=== PATIENT | female | born 1950 | race Two or more races ===

== ENCOUNTER 2024-02-25 07:08 | Day surgery (SDC) | payer OTHER ==
[2024-02-18 14:04] VITALS: BP 130/69
[~2024-02-25] VITALS: Ht 160 cm; Wt 77.6 kg
[~2024-02-25 07:08] MED LIST: ASA81 MG PO; COZAAR100 MG PO; HYDRODIURIL12.5 MG PO; KAPSPARGO SPRI100 MG PO; LIPOFEN50 MG; METFORMIN HCL750 MG PO; NORVASC2.5 M1 PO; PEPCID AC20 MG; ZETIA10 MG PO
[2024-02-25] MEDS ORDERED: TYLENOL325 MG PO (12:07)
[2024-02-25] MEDS ORDERED: POVIDONE-IODINE 118 ML BOTT TOP ONE (12:45)
[2024-02-25] MEDS ORDERED: MORPHINE SULFATE 4 MG/ML VIAL IV ONE (13:10)
== END 2024-02-25 17:45 | disposition home or self-care (01) ==
LOC: CIR.AMB 07:08
PROVIDERS: ATTEND Obstetrics & Gynecology Gynecology
DX: N84.1 Polyp of cervix uteri (principal); N95.0 Postmenopausal bleeding; E11.9 Type 2 diabetes mellitus without complications; K21.9 Gastro-esophageal reflux disease without esophagitis; I10 Essential (primary) hypertension; E78.5 Hyperlipidemia, unspecified; K76.0 Fatty (change of) liver, not elsewhere classified

== ENCOUNTER 2024-04-30 05:44 | Day surgery (SDC) | payer OTHER ==
[2024-04-21 13:13] VITALS: BP 143/80
[~2024-04-30] VITALS: Ht 160 cm; Wt 76.2 kg
[~2024-04-30 05:44] MED LIST changes: +TYLENOL325 MG PO
[2024-04-30] MEDS ORDERED: METRONIDAZOLE/SODIUM CHLORIDE 500 MG/100 ML PIGGYBACK IV ONE (10:32)
[2024-04-30] MEDS ORDERED: CEFTRIAXONE SODIUM 2,000 MG VIAL ONE (10:32)
[2024-04-30] MEDS ORDERED: DIBUCAINE 30 GM TUBE ONE (10:33)
[2024-04-30] MEDS ORDERED: POVIDONE-IODINE 118 ML BOTT TOP ONE (10:34)
[2024-04-30] MEDS ORDERED: BUPIVACAINE HCL/MPF 0.5% 30ML VIAL ONE (10:34)
[2024-04-30] MEDS ORDERED: LIDOCAINE HCL 1%/EPINEPHRINE 20ML VIAL IJ ONE (10:34)
[2024-04-30] MEDS ORDERED: HEMOSTATIC MATRIX 1 KIT KIT TOP ONE (10:36)
[2024-04-30] MEDS ORDERED: BUPIVACAINE LIPOSOME/PF 266 MG/20 ML VIAL IJ ONE (10:47)
[2024-04-30] MEDS ORDERED: CELECOXIB200 MG PO (15:23)
[2024-04-30] MEDS ORDERED: MIRALAX510 GM PO (15:24)
[2024-04-30] MEDS ORDERED: NEURONTIN300 MG PO (15:24)
[2024-04-30] MEDS ORDERED: PERCOCET 5-3251 EACH PO (15:24)
[2024-04-30] MEDS ORDERED: PROMETHAZINE HCL 50 MG/ML AMPUL IM ONE (15:58)
== END 2024-04-30 17:30 | disposition home or self-care (01) ==
LOC: CIR.AMB 05:44
PROVIDERS: ATTEND Surgery
DX: K64.3 Fourth degree hemorrhoids (principal); K64.4 Residual hemorrhoidal skin tags; K64.8 Other hemorrhoids; I10 Essential (primary) hypertension; E11.9 Type 2 diabetes mellitus without complications